=== PATIENT | male | born 1970 | race Caucasian/White ===

== ENCOUNTER 2018-12-26 08:08 | Emergency (ER) | payer SELFPAY ==
[~2018-12-26] VITALS: Ht 175.3 cm; Wt 106.8 kg
[2018-12-26 08:36] VITALS: Ht 175.3 cm; Wt 106.8 kg
[2018-12-26] MEDS ORDERED: ZOVIRAX800 MG PO (10:29)
[2018-12-26] MEDS ORDERED: KEFLEX500 MG PO (10:29)
[2018-12-26] MEDS ORDERED: MEDROL DOSE PACK4 MG PO (10:29)
[2018-12-26 11:29] VITALS: BP 120/80
== END 2018-12-26 11:30 | disposition home or self-care (01) ==
LOC: D.ER 08:08
DX: B02.9 Zoster without complications (principal)

== ENCOUNTER 2019-10-08 15:35 | Emergency (ER) | payer BC ==
[~2019-10-08] VITALS: Ht 175.3 cm; Wt 109.1 kg
[~2019-10-08 15:35] MED LIST: KEFLEX500 MG PO; MEDROL DOSE PACK4 MG PO; ZOVIRAX800 MG PO
[2019-10-08 15:50] VITALS: Ht 175.3 cm; Wt 109.1 kg
[2019-10-08 16:04] LABS: APPEARANCE CLEAR (CLEAR); COLOR STRAW (YELLOW); SPECIFIC GRAVITY 1.015 (1.005-1.020)
[2019-10-08 16:05] LABS: BILIRUBIN NEGATIVE (NEGATIVE); GLUCOSE NEGATIVE (NEGATIVE); KETONE NEGATIVE (NEGATIVE); NITRITE NEGATIVE (NEGATIVE); PROTEIN NEGATIVE (NEGATIVE); UROBILINOGEN NORMAL (NORMAL)
[2019-10-08 16:10] LABS: BASOPHILS 1.8 % (0-2); HEMOGLOBIN 14.7 g/dL (13.5-17.5); IMMATURE GRANULOCYTES 0.3 % (0-5); LYMPHOCYTES 43.8 % (15-50); MCH 31.7 pg (26.0-34.0); MCHC 34.2 g/dL (31.0-37.0); MCV 92.9 fL (80.0-100.0); MEAN PLATELET VOLUME 10.1 fL (7.4-10.4); MONOCYTES 6.9 % (2-11); NEUTROPHILS 45.2 % (40-80); PLATELET COUNT 265 10x3/uL (130-400); RBC 4.63 10x6/uL (4.20-6.10); WBC 6.1 10x3/uL (4.8-10.8)
[2019-10-08 16:20] LABS: CALC OSMOLALITY 279 mosm/kg (275-300); CALCIUM 8.7 mg/dL (8.5-10.1); CARBON DIOXIDE 28.5 mmol/L (21.0-32.0); CHLORIDE - SERUM 103 mmol/L (98-107); CREATININE - SERUM 1.2 mg/dL (0.6-1.3); GLUCOSE 98 mg/dL (74-106); SODIUM 139 mmol/L (136-145); UREA NITROGEN 19 mg/dL (7-18); eGFR NON AFRICAN AMERICAN 68 mL/min (90-120)
[2019-10-08 16:36] LABS: ALBUMIN 4.2 g/dL (3.4-5.0); ALKALINE PHOSPHATASE 60 U/L (46-116); ALT (SGPT) 52 U/L (10-68); BILIRUBIN - TOTAL 0.36 mg/dL (0.2-1.3); CKMB 3.9 U/L (0.0-3.6); CREATINE KINASE 687 UL (21-232); PROTEIN - SERUM 7.5 g/dL (6.4-8.2); THYROID STIMULATING HORMONE 1.65 uIU/mL (0.36-3.74); TROPONIN-I 0.023 ng/mL (0.000-0.060)
[2019-10-08 20:31] VITALS: BP 124/80
== END 2019-10-08 20:31 | disposition home or self-care (01) ==
LOC: D.ER 15:35
PROVIDERS: Family Medicine
DX: M62.89 Other specified disorders of muscle (principal); R74.8 Abnormal levels of other serum enzymes